=== PATIENT | male | born 1985 | race Two or more races ===

== ENCOUNTER 2023-01-18 19:09 | Emergency (ER) | payer OTHER ==
[~2023-01-18] VITALS: Ht 172.7 cm; Wt 95.5 kg
[2023-01-18 19:13] VITALS: TEMP 98.3
[2023-01-18] MEDS ORDERED: ALBUTEROL SULFATE HFA 90 MCG/PUFF 8 GM INHALER IH ONE (19:45)
[2023-01-18] MEDS ORDERED: PRED-554 PO (20:00)
[2023-01-18] MEDS ORDERED: PredniSONE 20 MG TABLET PO ONE (20:00)
[2023-01-18 20:34] VITALS: BP 130/86; PULSE 93; RESP 16
== END 2023-01-18 20:40 | disposition home or self-care (01) ==
LOC: EMS 19:11
DX: J45.909 Unspecified asthma, uncomplicated (principal)
CPT/HCPCS: 99283; 94640; J7512; J3535